=== PATIENT | female | born 1945 | race Caucasian/White ===

== ENCOUNTER 2019-01-18 13:32 | Outpatient (CLI) | payer MEDICARE ==
--- NOTE | 2019-01-18 14:02 | BD ---
BONE DENSITOMETRY USING DEXA: Date: 01/18/19 HISTORY: Postmenopausal screening for osteoporosis. FINDINGS: Lumbar Spine: BMD (g/cm2) L1 0.802 T-Score: -1.7 Z-Score: 0.3 L2 0.744 T-Score: -2.6 Z-Score: -0.4 L3 0.844 T-Score: -2.2 Z-Score: 0.2 L4 0.909 T-Score: -1.4 Z-Score: 1.0 L1-L4 0.827 T-Score: -2.0 Z-Score: 0.3 Femoral Neck: 0.568 T-Score: -2.5 Z-Score: -0.6 Total Femur: 0.763 T-Score: -1.5 Z-Score: 0.2 IMPRESSION: Osteoporosis. POS: OFF
== END 2019-01-18 13:33 | disposition home or self-care (01) ==
LOC: BICMAMMO 13:32
PROVIDERS: ATTEND Internal Medicine Rheumatology
DX: M81.0 Age-related osteoporosis without current pathological fracture (principal)
CPT/HCPCS: 77080

== ENCOUNTER 2020-05-12 15:31 | Outpatient (CLI) | payer MEDICARE ==
--- NOTE | 2020-05-12 16:09 | ULT ---
EXAM: Right lower extremity venous ultrasound HISTORY: Right lower extremity pain and edema COMPARISON: None TECHNIQUE: Multiplanar grayscale and color Doppler images were obtained in a right lower extremity ve nous ultrasound. Spectral analysis of the Doppler waveforms were performed. FINDINGS: The common femoral vein, profunda femoral vein, superficial femoral vein, and popliteal vei n are normal in appearance without visible thrombus. These vessels demonstrate normal compression, flow, and augmentation. The posterior tibial vein and greater saphenous vein are patent without evidence of thrombus. IMPRESSION: No evidence of DVT.
== END 2020-05-12 15:32 | disposition home or self-care (01) ==
LOC: SCSULT 15:31
PROVIDERS: ATTEND Student in an Organized Health Care Education/Training Program
DX: R60.0 Localized edema (principal)

== ENCOUNTER 2021-10-11 10:30 | Outpatient (CLI) | payer MEDICARE | END 2021-10-11 10:31 | disposition home or self-care (01) | LOC: SCSRAD 10:30 | PROVIDERS: ATTEND Family Medicine | DX: R05.9 Cough, unspecified (principal) | CPT/HCPCS: 71046 ==

== ENCOUNTER 2024-04-15 11:46 | Outpatient (CLI) | payer MEDICARE | END 2024-04-15 11:47 | disposition home or self-care (01) | LOC: SCSRAD 11:46 | PROVIDERS: ATTEND Nurse Practitioner Family | DX: M25.531 Pain in right wrist (principal); S52.501P Unspecified fracture of the lower end of right radius, subsequent encounter for closed fracture with malunion; M19.031 Primary osteoarthritis, right wrist; M18.11 Unilateral primary osteoarthritis of first carpometacarpal joint, right hand ==

== ENCOUNTER 2024-09-13 10:25 | Outpatient (CLI) | payer MEDICARE ==
[2024-09-13 12:12] LABS: #Basophils 0.05 10x3/uL (0.0-0.2); %Basophils 0.9 % (0.0-1.0); %Eosinophils 7.3 % (0.0-10.0); %Lymphocytes 30.1 % (21.0-51.0); %Monocytes 16.3 % (0.0-10.0); %Neutrophils 45.2 % (42.0-75.0); Hematocrit 42.5 % (36.0-47.0); Hemoglobin 14.5 g/dL (12.0-16.0); Mean Corpuscular HGB CONC 34.1 g/dL (32.0-36.0); Mean Corpuscular Hemoglobin 31.8 pg (27.0-31.0); Mean Corpuscular Volume 93.2 fL (78.0-98.0); Mean Platelet Volume 8.8 fL (7.4-10.4); Platelet Count 223 10x3/uL (130-400); RBC Distribution Width 12.5 % (11.5-14.5); Red Blood Cell (RBC) Count 4.56 mill/uL (4.20-5.40)
== END 2024-09-13 10:26 | disposition home or self-care (01) ==
LOC: LABBT 10:25
PROVIDERS: ATTEND Orthopaedic Surgery Hand Surgery
DX: Z01.818 Encounter for other preprocedural examination (principal); G56.01 Carpal tunnel syndrome, right upper limb
CPT/HCPCS: 85025; 93005; 93010

== ENCOUNTER 2024-09-17 06:27 | Day surgery (SDC) | payer MEDICARE ==
[2024-09-13 10:42] VITALS: BMI 33.3
[2024-09-17] MEDS ORDERED: Bacitracin Zinc Ointment 30 gm TUBE ONE (06:28)
[2024-09-17] MEDS ORDERED: Bupivacaine PF 0.5% 30 ML VIAL ONE (06:28)
[2024-09-17] MEDS ORDERED: CEFAZOLIN 2 GM VIAL ONE (07:03)
[2024-09-17] MEDS ORDERED: PROPOFOL 40 ML ONE (07:27)
== END 2024-09-17 09:15 | disposition home or self-care (01) ==
LOC: SDC 06:27
PROVIDERS: ATTEND Orthopaedic Surgery Hand Surgery
PROC: 01N50ZZ Release Median Nerve, Open Approach (ICD-10-PCS; principal; 2024-09-17)
DX: G56.01 Carpal tunnel syndrome, right upper limb (principal); M06.00 Rheumatoid arthritis without rheumatoid factor, unspecified site; M66.242 Spontaneous rupture of extensor tendons, left hand; M66.231 Spontaneous rupture of extensor tendons, right forearm; M18.0 Bilateral primary osteoarthritis of first carpometacarpal joints; M20.032 Swan-neck deformity of left finger(s); I10 Essential (primary) hypertension; Z90.49 Acquired absence of other specified parts of digestive tract; Z87.891 Personal history of nicotine dependence; Z79.899 Other long term (current) drug therapy
CPT/HCPCS: 64721; A6223; J0665; J2704